=== PATIENT | male | born 1990 | race Caucasian/White ===

== ENCOUNTER → 2023-11-21 13:07 | Outpatient (REF) | payer BC, SELFPAY | LOC: MRI 3T 13:07 | PROVIDERS: ATTENDING PHYSICIAN Orthopaedic Surgery Sports Medicine; FAMILY PHYSICIAN Family Medicine | DX: M25.512 Pain in left shoulder (principal); S43.432A Superior glenoid labrum lesion of left shoulder, initial encounter | CPT/HCPCS: 23350; 73040; 73222 ==